=== PATIENT | male | born 1990 | race Hispanic/Latino ===

== ENCOUNTER 2018-03-25 04:28 | Day surgery (SDC) | payer SELFPAY ==
[2018-03-25] MEDS ORDERED: Morphine 4 MG/ML VIAL ONE ×2 (04:44→07:40)
[2018-03-25 05:05] LABS: #Monocytes 0.9 thou/uL (0.11-0.59); #Neutrophils 12.4 thou/uL (1.40-6.50); %Basophils 0.2 % (0.0-1.0); %Eosinophils 0.2 % (0.0-10.0); %Lymphocytes 6.6 % (21.0-51.0); %Monocytes 6.5 % (0.0-10.0); %Neutrophils 86.5 % (42.0-75.0); Hemoglobin 16.3 g/dL (14.0-18.0); Mean Corpuscular HGB CONC 35.6 g/dL (32.0-36.0); Mean Corpuscular Volume 95.4 fl (80.0-94.0); Mean Platelet Volume 7.6 fL (7.4-10.4); Platelet Count 229 thou/uL (130-400); RBC Distribution Width 11.5 % (11.5-14.5); Red Blood Cell (RBC) Count 4.81 mill/uL (4.70-6.10); White Blood Cell (WBC) Count 14.4 thou/uL (4.8-10.8)
[2018-03-25 05:21] LABS: ALT (SGPT) 38 U/L (8-55); AST (SGOT) 21 U/L (5-34); Albumin 4.6 g/dL (3.5-5.0); Alkaline Phosphatase 78 U/L (40-150); Anion Gap 13 mmol/L (10-20); BUN (Urea Nitrogen) 11 mg/dL (8.9-20.6); Bilirubin, Total 1.1 mg/dL (0.2-1.2); Calc. Creatinine Clearance 0 mL/min (70-130); Calcium 9.3 mg/dL (7.8-10.44); Carbon Dioxide 24 mmol/L (22-29); Chloride 104 mmol/L (98-107); Estimated GFR-MDRD Greater than 90; Globulin 3.1 g/dL (2.4-3.5); Glucose 156 mg/dL (70-105); Lipase 24 U/L (8-78); Protein, Total 7.7 g/dL (6.0-8.3); Sodium 137 mmol/L (136-145)
[2018-03-25] MEDS ORDERED: MEROPENEM 1 GM/50 ML 1 GM in Premix Bag 1 BAG IVPB SCH (06:15)
--- NOTE | 2018-03-25 07:30 | CT ---
PRELIMINARY REPORT/[facility]/EMERGENCY AFTER HOURS PROCEDURE: Addendum created by Gavin Mosquera MD on 03/25/2018 6:10 AM Central Time ([place] & [place]) Report of this case was called to KALANI Das at 6:10 AM CDT, 03/25/2018. The findings were acknowledged and unders tood. Initial Report created on 03/25/2018 5:58 AM Central Time ([place] & [place]) EXAM: CT Abdomen and Pelvis With Intravenous Contrast CLINICAL HISTORY: 28 years old, male; Pain; Abdominal pain; Periumbilical; Patient HX: M28 presents to ed C/O abd pain, onset monday. At onset, pain location periumbilical region, pain now radiates to rlq. Pain describ ed as sharp. Pt took vinegar for relief, which offered temporary alleviation. Associated with chills, "feeling feverish" (subjective), nausea. Denies diarrhea, vomiting, stool changes. TECHNIQUE: Axial computed tomography images of the abdomen and pelvis with intravenous contrast. Coronal reforma tted images were created and reviewed. COMPARISON: No relevant prior studies available. FINDINGS: The lung bases are clear. No definite gallbladder abnormality by CT. No biliary tree dilation. Unremarkable appearance of the liver, spleen, kidneys, adrenal glands, and pancreas. No free air, ascites, or bowel distention. No retroperitoneal adenopathy. CT pelvis: There are findings compatible with acute appendicitis. The appendix is filled and dilated up to 12 mm . Mild appendiceal wall thickening. There are mild surrounding inflammatory changes. No obvious abscess or extraluminal gas. A few mildly enlarged right lower quadrant mesenteric lymph nodes. There are no CT findings to suggest diverticulitis. No abnormal mass or fluid collection in the pelvis. IMPRESSION: Findings compatible with acute appendicitis, see above details. No free air or bowel distention. Other findings discussed above. Thank you for allowing us to participate in the care of your patient. Dictated and Authenticated by: Gavin Mosquera MD 03/25/2018 5:58 AM Central Time ([place] & [place]) FINAL REPORT EMERGENCY AFTER HOURS ABDOMEN AND PELVIC CT SCAN WITH IV CONTRAST: Date: 03/25/18 Time: 0459 hours FINDINGS/IMPRESSION: Abnormally dilated, fluid-filled appendix, with very minimal periappendiceal fat stranding. No eviden ce of abscess. Evidence for acute appendicitis. Report in agreement with preliminary report given on-call by Olga Lidia. POS: [place]
[2018-03-25 07:57] LABS: Bilirubin Negative (Negative); Blood, Urine Negative (Negative); Clarity CLEAR (Clear); Glucose, Urine (Dipstick) Negative (Negative); Leukocyte Negative (Negative); Nitrite Negative (Negative); Protein, Urine (Dipstick) Negative (Neg-Trace); Specific Gravity, Urine 1.044 (1.002-1.036); pH, Urine 7.5 (5.0-9.0)
[2018-03-25] MEDS ORDERED: Sodium Chloride 0.9% 100 ML ONE (09:01)
[2018-03-25] MEDS ORDERED: Midazolam HCl 2 mg/2 ml Vial ONE (09:01)
[2018-03-25] MEDS ORDERED: cefOXitin 2 GM VIAL ONE (09:01)
--- NOTE | 2018-03-25 09:10 | HP ---
CHIEF COMPLAINT: Right lower quadrant abdominal pain. HISTORY OF PRESENT ILLNESS: The patient is a 28-year-old male with a 12-hour history of right lower quadrant pain associated with nausea, vomiting, no fever. Last meal was yesterday at 2:[address] scan showing appendicitis. PAST MEDICAL HISTORY: Otherwise, healthy. PAST SURGICAL HISTORY: None. MEDICATIONS: None. ALLERGIES: No known drug allergies. SOCIAL HISTORY: He is . 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 No tobacco or alcohol. FAMILY HISTORY: Both parents are diabetic. His father had colon cancer. PHYSICAL EXAMINATION: VITAL SIGNS: He is afebrile, pulse 76, blood pressure 111/63. GENERAL: He is awake, alert, in no apparent distress. HEENT: Unremarkable. LUNGS: Clear. HEART: Regular rate and rhythm. ABDOMEN: Soft, but tender. Percussion tender in the right lower quadrant. EXTREMITIES: Unremarkable. LABORATORY AND X-RAY FINDINGS: White count 14, H and H is 16 and 45, platelet count 229. Electrolyt es show an elevated glucose of 156. CT scan shows acute appendicitis without much fluid or stranding . ASSESSMENT: Acute appendicitis. PLAN: Laparoscopic appendectomy. CONSENT: I have discussed planned procedure as well as risk of bleeding, infection, injury to bowel, bladder, need to open. He understands and gives informed consent.
[2018-03-25] MEDS ORDERED: Bupivacaine/Epinephrine 0.25% 30 ML VIAL ONE (09:13)
[2018-03-25] MEDS ORDERED: Fentanyl 100 MCG/2 ML VIAL ONE (09:38)
[2018-03-25] MEDS ORDERED: Ondansetron ODT 4 MG TAB ONE (10:56)
--- NOTE | 2018-03-25 12:07 | OP ---
PREOPERATIVE DIAGNOSIS: Acute appendicitis. SURGEON: Rashi Beard M.D. PROCEDURE PERFORMED: Laparoscopic appendectomy. INDICATIONS: This is a 28-year-old male who presented with a 12-hour history of right lower quadrant pain associated with nausea, vomiting. He had a CT scan showing appendicitis. FINDINGS: Acute suppurative nonperforated appendicitis. PROCEDURE IN DETAIL: After informed consent was obtained, the patient was taken to the operating clementina m and given general endotracheal anesthesia placed in the supine position. The abdomen was prepped a nd draped in usual fashion. Local anesthesia infiltrated subcutaneously and deep. A subumbilical in cision was performed. The subcu divided sharply. The fascia grasped and two stay sutures of 0 Vicry l placed to either side of midline. Midline incised. Digital palpation revealed no local adhesions. A blunt 10/12 mm trocar inserted. Pneumoperitoneum was created to a pressure of 15 mmHg. Zero deg ree laparoscope inserted under direct vision, two 5-mm ports were placed, one suprapubic and one righ t lateral abdomen. The appendix was found. The mesoappendix divided with the LigaSure. The base of the appendix divided with the linear 45 mm white load stapler. The appendix was placed in an Endosa c and removed from the abdomen in the Endosac. Hemostasis was assured. The abdomen irrigated and ir rigation fluid removed. Trocars and retractors removed. The fascia closed with interrupted 0 Vicryl suture. The skin closed with interrupted 4-0 Rapide. Dermabond applied. The patient tolerated the procedure well and was transferred to recovery in good condition. Sponge and needle count verified correct x2.
[2018-03-25] MEDS ORDERED: PROPOFOL 200 MG/20 ML VIAL ONE (14:15)
[2018-03-25] MEDS ORDERED: Succinylcholine Chloride 20 MG/ML 10 ml SYRINGE FS ONE (14:15)
[2018-03-25] MEDS ORDERED: Lidocaine 1% PF 5 ML VIAL ONE (14:15)
[2018-03-25] MEDS ORDERED: Ketorolac Tromethamine 30 MG/ML VIAL ONE (14:15)
[2018-03-25] MEDS ORDERED: Ondansetron HCl/PF 4 MG/2 ML Vial ONE (14:15)
[2018-03-25] MEDS ORDERED: Glycopyrrolate 0.2 MG/ML 5 ML SYRINGE ONE (14:15)
[2018-03-25] MEDS ORDERED: Dexamethasone 20 MG/5 ML VIAL ONE (14:15)
[2018-03-25] MEDS ORDERED: Naloxone HCl 0.4 mg/ml Vial ONE (14:15)
[2018-03-25] MEDS ORDERED: ISOVUE-370 76%-LOCM 1 ML ONE (18:34)
== END 2018-03-25 12:38 | disposition home or self-care (01) ==
LOC: ERS 04:28 → SDC 09:25 → SURG A 09:33 → SDC 12:38
PROVIDERS: ATTEND Surgery
PROC: 0DTJ4ZZ Resection of Appendix, Percutaneous Endoscopic Approach (ICD-10-PCS; principal; 2018-03-25)
DX: K35.80 Unspecified acute appendicitis (principal)
CPT/HCPCS: 74177; 80053; 81003; 83690; 85025; 88304; 96361; 96365; 96375; 96376; J0131; J0694; J1100; J1885; J2001; J2185; J2250; J2270; J2310; J2405; J2704; J3010; J7050; Q0162